=== PATIENT | male | born 2000 | race Two or more races ===

== ENCOUNTER 2024-03-29 10:41 | Emergency (ER) | payer SELFPAY ==
[~2024-03-29] VITALS: Ht 177.8 cm; Wt 77.3 kg
[2024-03-29 10:48] VITALS: TEMP 98.5
[2024-03-29] MEDS: LIDOCAINE 1% 10 ML VIAL ID ONE (12:25)
[2024-03-29] MEDS: SULFAMETHOX/TRIMETH DS 800-160 MG/TABLET PO ONE (12:43)
[2024-03-29 13:45] VITALS: BP 116/51; PULSE 75; RESP 18; O2SAT 99
[2024-03-29] MEDS ORDERED: SULF-261 PO (13:51)
== END 2024-03-29 14:03 | disposition home or self-care (01) ==
LOC: EMS 12:05
DX: L60.0 Ingrowing nail (principal); F10.20 Alcohol dependence, uncomplicated; F12.90 Cannabis use, unspecified, uncomplicated; Y90.9 Presence of alcohol in blood, level not specified
CPT/HCPCS: 99284; 11730; J3490; 11732

== ENCOUNTER 2024-03-31 17:23 | Emergency (ER) | payer MEDICAID ==
[~2024-03-31] VITALS: Ht 172.7 cm; Wt 85.5 kg
[~2024-03-31 17:23] MED LIST: SULF-261 PO
[2024-03-31 19:47] LABS: BASOPHILS % (AUTO) 0.5 % (0.0-2.0); EOSINOPHILS % (AUTO) 2.8 % (1.0-6.0); HEMATOCRIT 46.1 % (41-53); HEMOGLOBIN 15.1 g/dL (13.5-17.5); LYMPHOCYTES # (AUTO) 1.7 K/uL (1.0-4.8); LYMPHOCYTES % (AUTO) 18.3 % (22.0-44.0); MEAN CORPUSCULAR HEMOGLOBIN 28.8 pg (26.0-34.0); MEAN CORPUSCULAR HGB CONC 32.9 G/dL (31.0-37.0); MEAN CORPUSCULAR VOLUME 88 fL (80-100); MONOCYTES # (AUTO) 1.4 K/uL (0.1-1.0); MONOCYTES % (AUTO) 15.6 % (2.0-9.0); NEUTROPHILS # (AUTO) 5.8 K/uL (1.8-7.7); NEUTROPHILS % (AUTO) 62.8 % (40.0-70.0); PLATELET COUNT (AUTO) 122 K/uL (150-450); RED BLOOD CELL COUNT(AUTO) 5.25 MIL/uL (4.50-5.90); RED CELL DISTRIBUTION WIDTH 13.1 % (11.5-14.5); WHITE BLOOD COUNT (AUTO) 9.3 K/uL (4.5-11.0)
[2024-03-31 20:00] LABS: ANION GAP 11 mmol/L (8-16); CALCIUM, TOTAL 8.6 mg/dL (8.8-10.5); CARBON DIOXIDE 25 mmol/L (22-29); CHLORIDE 101 mmol/L (98-107); CREATININE 1.33 mg/dL (0.60-1.30); GLOMERULAR FILTR. RATE CALC > 60 mL/min (>60); GLUCOSE,RANDOM 116 mg/dL (70-110); LIPASE 37 U/L (16-77); POTASSIUM 4.4 mmol/L (3.5-5.1); SODIUM SERUM 137 mmol/L (136-145); UREA NITROGEN, BLOOD 16 mg/dL (7-18)
[2024-03-31] MEDS ORDERED: ACET-66 PO (20:38)
[2024-03-31] MEDS ORDERED: ONDA-104 PO (20:38)
[2024-03-31] MEDS: ONDANSETRON 4 MG TABLET PO ONE (21:30)
[2024-03-31] MEDS: ACETAMINOPHEN 500 MG TABLET PO ONE (21:30)
[2024-03-31 21:36] VITALS: BP 129/75; PULSE 71; RESP 18; TEMP 98.7; O2SAT 98
== END 2024-03-31 22:18 | disposition home or self-care (01) ==
LOC: EMS 17:33
DX: R51.9 Headache, unspecified (principal); Z48.00 Encounter for change or removal of nonsurgical wound dressing; R11.2 Nausea with vomiting, unspecified; F12.90 Cannabis use, unspecified, uncomplicated
CPT/HCPCS: 80048; 83690; 85025; 99283; Q0162

== ENCOUNTER 2024-04-02 03:20 | Emergency (ER) | payer MEDICAID ==
[~2024-04-02] VITALS: Ht 182.9 cm; Wt 100.0 kg
[~2024-04-02 03:20] MED LIST changes: +ACET-66 PO; +ONDA-104 PO
[2024-04-02 03:31] VITALS: TEMP 99.4
[2024-04-02 06:53] LABS: BASOPHILS % (AUTO) 0.6 % (0.0-2.0); EOSINOPHILS % (AUTO) 0.7 % (1.0-6.0); HEMATOCRIT 43.8 % (41-53); HEMOGLOBIN 14.7 g/dL (13.5-17.5); LYMPHOCYTES # (AUTO) 2.2 K/uL (1.0-4.8); LYMPHOCYTES % (AUTO) 25.4 % (22.0-44.0); MEAN CORPUSCULAR HEMOGLOBIN 29.2 pg (26.0-34.0); MEAN CORPUSCULAR HGB CONC 33.6 G/dL (31.0-37.0); MEAN CORPUSCULAR VOLUME 87 fL (80-100); MONOCYTES # (AUTO) 1.1 K/uL (0.1-1.0); MONOCYTES % (AUTO) 12.2 % (2.0-9.0); NEUTROPHILS # (AUTO) 5.3 K/uL (1.8-7.7); NEUTROPHILS % (AUTO) 61.1 % (40.0-70.0); PLATELET COUNT (AUTO) 135 K/uL (150-450); RED BLOOD CELL COUNT(AUTO) 5.06 MIL/uL (4.50-5.90); WHITE BLOOD COUNT (AUTO) 8.7 K/uL (4.5-11.0)
[2024-04-02 06:56] LABS: ANION GAP 12 mmol/L (8-16); CALCIUM, TOTAL 8.6 mg/dL (8.8-10.5); CARBON DIOXIDE 24 mmol/L (22-29); CHLORIDE 100 mmol/L (98-107); CREATININE 1.08 mg/dL (0.60-1.30); GLOMERULAR FILTR. RATE CALC > 60 mL/min (>60); GLUCOSE,RANDOM 112 mg/dL (70-110); POTASSIUM 3.9 mmol/L (3.5-5.1); SODIUM SERUM 136 mmol/L (136-145); UREA NITROGEN, BLOOD 9 mg/dL (7-18)
[2024-04-02 07:02] LABS: ALANINE AMINOTRANSFERASE 16 U/L (12-78); ALBUMIN 3.7 g/dL (3.4-5.0); ALKALINE PHOSPHATASE 63 U/L (46-116); ASPARTATE AMINOTRANSFERASE 17 U/L (15-37); BILIRUBIN,TOTAL 0.4 mg/dL (0.1-1.0); TOTAL PROTEIN, SERUM 7.5 g/dL (6.4-8.2)
[2024-04-02] MEDS: SODIUM CHLORIDE 0.9% 1,000 ML IV ONE (07:36)
[2024-04-02] MEDS: ONDANSETRON HCL 4 MG/2 ML VIAL IVP ONE (07:36)
[2024-04-02] MEDS: KETOROLAC TROMETHAMINE 30 MG/ML VIAL IVP ONE (07:36)
[2024-04-02] MEDS: ACETAMINOPHEN 500 MG TABLET PO ONE (07:37)
[2024-04-02 07:42] LABS: COVID AG,FIA SOURCE NASAL SWAB
[2024-04-02 07:50] LABS: LACTIC ACID 0.8 mmol/L (0.4-2.0)
[2024-04-02 08:06] LABS: SARS-COV2 (COVID) ANTIGEN,FIA Negative (Negative)
[2024-04-02] MEDS ORDERED: ACET-3385 PO (08:07)
[2024-04-02] MEDS ORDERED: ONDA-104 PO (08:07)
[2024-04-02 08:08] LABS: INFLUENZA TYPE A NEGATIVE FOR TYPE A (NEGATIVE); INFLUENZA TYPE B NEGATIVE FOR TYPE B (NEGATIVE)
[2024-04-02 08:45] VITALS: BP 124/78; PULSE 74; RESP 18; O2SAT 99
== END 2024-04-02 08:51 | disposition home or self-care (01) ==
LOC: EMS 03:21
DX: R51.9 Headache, unspecified (principal); R11.2 Nausea with vomiting, unspecified; F10.20 Alcohol dependence, uncomplicated; F12.90 Cannabis use, unspecified, uncomplicated; Z20.822 Contact with and (suspected) exposure to COVID-19
CPT/HCPCS: 99284; 96374; 96361; 96375; 87426; 80053; 83605; 85025; 87804; 36415; J1885; J2405; J7030